=== PATIENT | female | born 1970 | race Caucasian/White ===

== ENCOUNTER → 2016-08-22 | Day surgery (SDC) | payer BC ==
[~2016-08-22] VITALS: Ht 154.9 cm; Wt 60.0 kg
[~2016-08-22] MED LIST: *HYDROmorphone PF 1 MG VIAL PERIprocedural Use ONLY ONE; *ONDANSETRON 4 MG VIAL PERIprocedural Use ONLY ONE; *PROMETHAZINE 25 MG/ML VIAL PERIprocedural use ONLY ONE; *morphine SULFATE 8 MG/ML PERIprocedure ONLY ONE; ACETAMINOPHEN 1000 MG/100 ML VIAL IV SCH; ADVI200C5 PO; BUPIVACAINE/EPINEPHRINE 0.25% 50 ML VIAL ONE; CHLORHEXIDINE GLUCONATE 2 % 1 PACK (2 CLOTHS) TOPICAL PRN; DEXAMETHASONE SOD PHOS 4 MG/ML VIAL ONE; DO NOT ADM ANY ANTICOAGULANT DRUGS PRN; FAMOTIDINE 20 MG/2 ML VIAL ONE; FEXO15TA PO; FEXO1TAB97 PO; FLUT1SPR5 EACH NARE; INSULIN HUMAN REGULAR 1,000 UNITS/10 ML VIAL SQ PRN; MAPA500C PO; METOPROLOL TARTRATE 25 MG TAB PO PRN; MIDAZOLAM HCL 2 MG/2 ML VIAL ONE; MORPHINE SULFATE 4 MG/ML INJ IV PRN; MORPHINE SULFATE 4 MG/ML INJ ONE; MULT1TAB84 PO; NEOSTIGMINE 3 MG/3 ML SYR IV ONE; OMEP40CA2 PO; ONDANSETRON HCL 4 MG/2 ML VIAL IV PUSH PRN; ONDANSETRON HCL 4 MG/2 ML VIAL ONE; POVIDONE IODINE 5% (ANTISEPSIS KIT) 4 APPLICATIONS EACH NARE PRN; PROPOFOL 200 MG/20 ML AMP IV ONE; SODIUM CHLORID 0.9% 500 ML IV PRN; ceFAZolin 2 GM PREMIX 50 ML IV SCH; diphenhydrAMINE HCL 50 MG/ML VIAL ONE; fentaNYL CITRATE 250 MCG/5 ML AMP ONE; oxyCODONE/ACETAMINOPHEN 5 MG/325 MG TAB PO PRN
[2016-08-22] MEDS: LACTATED RINGER'S 1000 ML IV PRN ×2 (06:18→09:56)
[2016-08-22 06:19] VITALS: BP 112/73; PULSE 60; RESP 16; TEMP 98.3; O2SAT 98
--- NOTE | 2016-08-22 09:21 | PD.OP ---
cc: Patrice Casey MD Operative Report Date of Surgery: August 22, 2016 Preoperative Diagnosis: (1) Incisional hernia Postoperative Diagnosis: (1) Incisional hernia Procedure: Laparoscopic repair of incisional hernia at the umbilicus with a 10 x 15 x 1 [place] "DualMesh Anesthesia: GETA Surgeon: Patrice Casey Screen Tacker(s): Gem MATTSON Operation and Findings: EBL: 10 cc Operative findings: The patient had a 2 x 2 centimeter incisional hernia at and just to the right of the umbilicus with incarcerated preperitoneal fat. Procedure in detail: The patient was taken to the operating room and placed supine position. Gen. endotracheal anesthesia was induced. The abdomen was prepped and draped in usual sterile fashion and a surgical timeout was performed to verify correct patient procedure and site. Appropriate perioperative antibiotics were administered. In the left lower abdomen 5 mm incision was made after infiltration with local anesthetic and a 5 mm port placed using the direct Optiview technique. The abdomen was insufflated to 15 mmHg which the patient tolerated well. The 12 mm gel balloon port was placed in the left upper abdomen. At the umbilicus and just to the right of the umbilicus there was an incisional hernia defect about 2 x 2 centimeters. Incarcerated preperitoneal fat was reduced and surrounding fatty tissue was removed. The fatty tissue towards the falciform was also cleared away. Two five mm balloon ports were placed in the right abdomen laterally. I chose to repair the defect using 10 x 15 cm x 1 mm [place] DualMesh. The [place] suture was placed in 4 positions at each border. The mesh was rolled and placed in the abdominal cavity. The rough side was towards the abdominal wall and the smooth side towards the bowel. Using the [place] suture passer each suture was brought up through the abdominal wall through separate stab incisions in the 4 locations. The 15 cm longer length of the mesh was placed vertically and the 10 cm transversely. There was very good coverage of the defect and a hillary-shaped was created. The pro-tack tacker was used to secure the edges of the mesh. There was good hemostasis. At this point trochars were removed and the abdomen allowed to desufflate. The 12 mm port site fascia was closed with [id number] 0 Vicryl suture. Skin closed with 4 -0 Monocryl subcuticular for the ports as well as Dermabond for the ports and this small stab incisions. The patient tolerated the procedure well was extubated and taken back in stable condition. Patrice Casey MD August 22, 2016 09:21
[2016-08-22 11:48] VITALS: PULSE 94; RESP 16; TEMP 98.3; O2SAT 96
[2016-08-22 12:05] VITALS: BP 134/84
== END | disposition home or self-care (01) ==
LOC: HSDC 05:42
PROVIDERS: ATTEND Surgery
DX: K43.0 Incisional hernia with obstruction, without gangrene (principal); E11.9 Type 2 diabetes mellitus without complications; K21.9 Gastro-esophageal reflux disease without esophagitis; K58.9 Irritable bowel syndrome, unspecified; N80.9 Endometriosis, unspecified; H53.8 Other visual disturbances
CPT/HCPCS: 00752; 49655; C1781; J0131; J0690; J1100; J1170; J1200; J2250; J2270; J2405; J2550; J2710; J3010; J7120

== ENCOUNTER → 2017-03-07 | Outpatient (CLI) | payer BC ==
[~2017-03-07] MED LIST changes: -*HYDROmorphone PF 1 MG VIAL PERIprocedural Use ONLY ONE; -*ONDANSETRON 4 MG VIAL PERIprocedural Use ONLY ONE; -*PROMETHAZINE 25 MG/ML VIAL PERIprocedural use ONLY ONE; -*morphine SULFATE 8 MG/ML PERIprocedure ONLY ONE; -ACETAMINOPHEN 1000 MG/100 ML VIAL IV SCH; -ADVI200C5 PO; -BUPIVACAINE/EPINEPHRINE 0.25% 50 ML VIAL ONE; +CELE100C PO; +CELE50CA PO; +CETI10CA3 PO; -CHLORHEXIDINE GLUCONATE 2 % 1 PACK (2 CLOTHS) TOPICAL PRN; -DEXAMETHASONE SOD PHOS 4 MG/ML VIAL ONE; -DO NOT ADM ANY ANTICOAGULANT DRUGS PRN; -FAMOTIDINE 20 MG/2 ML VIAL ONE; +FERRTAB6 PO; -FEXO1TAB97 PO; -INSULIN HUMAN REGULAR 1,000 UNITS/10 ML VIAL SQ PRN; -METOPROLOL TARTRATE 25 MG TAB PO PRN; -MIDAZOLAM HCL 2 MG/2 ML VIAL ONE; -MORPHINE SULFATE 4 MG/ML INJ IV PRN; -MORPHINE SULFATE 4 MG/ML INJ ONE; -MULT1TAB84 PO; -NEOSTIGMINE 3 MG/3 ML SYR IV ONE; -ONDANSETRON HCL 4 MG/2 ML VIAL IV PUSH PRN; -ONDANSETRON HCL 4 MG/2 ML VIAL ONE; +ORTH0.25 PO; -POVIDONE IODINE 5% (ANTISEPSIS KIT) 4 APPLICATIONS EACH NARE PRN; -PROPOFOL 200 MG/20 ML AMP IV ONE; -SODIUM CHLORID 0.9% 500 ML IV PRN; +SONA5CAP7 PO; +WOMETAB5 PO; -ceFAZolin 2 GM PREMIX 50 ML IV SCH; -diphenhydrAMINE HCL 50 MG/ML VIAL ONE; -fentaNYL CITRATE 250 MCG/5 ML AMP ONE; -oxyCODONE/ACETAMINOPHEN 5 MG/325 MG TAB PO PRN
== END ==
LOC: CPRE 11:47
PROVIDERS: ATTEND Obstetrics & Gynecology
DX: N92.0 Excessive and frequent menstruation with regular cycle (principal)

== ENCOUNTER 2017-03-12 07:52 | Observation (INO) | payer BC ==
[~2017-03-12] VITALS: Ht 154.9 cm; Wt 60.9 kg
[~2017-03-12 07:52] MED LIST changes: -CELE50CA PO; -MAPA500C PO
[2017-03-12] MEDS ORDERED: MIDAZOLAM HCL 2 MG/2 ML VIAL IV ONE ×2 (08:30→12:00)
[2017-03-12] MEDS ORDERED: ONDANSETRON HCL 4 MG/2 ML VIAL IV PUSH ONE (08:30)
[2017-03-12] MEDS ORDERED: METOPROLOL TARTRATE 25 MG TAB PO PRN (08:30)
[2017-03-12] MEDS ORDERED: ceFAZolin 1,000 MG/NS 100 ML IV SCH ×2 (08:30)
[2017-03-12] MEDS ORDERED: POVIDONE IODINE 5% (ANTISEPSIS KIT) 4 APPLICATIONS EACH NARE PRN (08:30)
[2017-03-12] MEDS ORDERED: LACTATED RINGER'S 1000 ML IV PRN (08:30)
[2017-03-12] MEDS ORDERED: SODIUM CHLORID 0.9% 500 ML IV PRN (08:30)
[2017-03-12] MEDS ORDERED: CHLORHEXIDINE GLUCONATE 2 % 1 PACK (2 CLOTHS) TOPICAL PRN (08:30)
[2017-03-12] MEDS ORDERED: ESTROGENS CONJUGATED VAG CREA 15 APPL/30 GM TUBE ONE (09:57)
[2017-03-12] MEDS ORDERED: SUGAMMADEX SODIUM 200 MG/2 ML VIAL IV PUSH ONE ×2 (11:54)
[2017-03-12 11:57] LABS: HEMATOCRIT 32.1 % (35.0-46.0); REVIEW FLAG FINAL
[2017-03-12] MEDS ORDERED: KETOROLAC TROMETHAMINE 30 MG/ML (IVP) VIAL IV PUSH ONE ×3 (12:00→17:15)
[2017-03-12] MEDS ORDERED: LIDOCAINE HCL 1% PF 5 ML SYRINGE OTHER ONE (12:00)
[2017-03-12] MEDS ORDERED: ONDANSETRON HCL 4 MG/2 ML VIAL IV ONE (12:00)
[2017-03-12] MEDS ORDERED: PROPOFOL 200 MG/20 ML AMP IV ONE (12:00)
[2017-03-12] MEDS ORDERED: ROCURONIUM INJ 50 MG/5 ML SYRINGE IV PUSH ONE (12:00)
[2017-03-12] MEDS ORDERED: ACETAMINOPHEN 1000 MG/100 ML 100 ML IV ONE (12:21)
[2017-03-12] MEDS ORDERED: *morphine SULFATE 8 MG/ML PERIprocedure ONLY ONE (12:21)
[2017-03-12] MEDS ORDERED: *HYDROmorphone PF 1 MG VIAL PERIprocedural Use ONLY ONE (12:30)
[2017-03-12] MEDS ORDERED: *MEPERIDINE 25 MG INJ VIAL PERIprocedural Use ONLY ONE (12:36)
[2017-03-12] MEDS ORDERED: MORPHINE SULFATE 30 MG/30 ML PCA ONE (12:42)
[2017-03-12] MEDS ORDERED: NALOXONE HCL 0.4 MG/ML AMP IV PUSH PRN (13:00)
[2017-03-12] MEDS ORDERED: oxyCODONE/ACETAMINOPHEN 5 MG/325 MG TAB PO PRN (13:00)
[2017-03-12] MEDS: DEXT 5%-NACL 0.45% 1000 ML INJ 1,000 ML IV SCH ×2 (13:00→19:29)
[2017-03-12] MEDS ORDERED: DO NOT ADM ANY ANTICOAGULANT DRUGS PRN (13:00)
[2017-03-12] MEDS ORDERED: ONDANSETRON HCL 4 MG/2 ML VIAL IV PUSH PRN (13:00)
[2017-03-12] MEDS ORDERED: diphenhydrAMINE HCL 50 MG/ML VIAL IV PUSH PRN (13:00)
[2017-03-12] MEDS ORDERED: *PROMETHAZINE 25 MG/ML VIAL PERIprocedural use ONLY ONE (13:15)
[2017-03-12 13:30] VITALS: BP 152/91; PULSE 83; RESP 16; TEMP 98; O2SAT 97
[2017-03-12] MEDS: MORPHINE SULFATE 30 MG/30 ML PCA IV SCH ×2 (13:37→19:35)
[2017-03-12] MEDS ORDERED: ZOLPIDEM TARTRATE 5 MG TAB PO PRN (15:45)
[2017-03-12 16:30] VITALS: BP 154/89; PULSE 85; RESP 20; TEMP 99; O2SAT 99
[2017-03-12 16:46] LABS: HEMATOCRIT 33.9 % (35.0-46.0); REVIEW FLAG FINAL
[2017-03-12] MEDS: ALPRAZolam 0.5 MG TAB PO PRN ×2 (17:25→23:27)
[2017-03-12] MEDS: PCA - TOTAL MG MORPHINE DELIVERED PER SHIFT SCH ×2 (18:00→20:27)
[2017-03-12 20:00] VITALS: BP 130/72; PULSE 86; RESP 18; TEMP 99; O2SAT 99
[2017-03-12] MEDS: CELECOXIB 100 MG CAP PO SCH (20:27)
[2017-03-12] MEDS: FLUTICASONE PROPIONATE 50 MCG/ACT 16 GM NASAL SPRAY NASAL SCH (20:27)
[2017-03-12] MEDS ORDERED: CETIRIZINE HCL 10 MG TAB PO SCH (21:00)
[2017-03-12] MEDS: KETOROLAC TROMETHAMINE 10 MG TAB PO PRN (23:28)
[2017-03-13] VITALS: BP 126/75; PULSE 74; RESP 16; TEMP 99.1; O2SAT 98
[2017-03-13 04:00] VITALS: BP 137/68; PULSE 96; RESP 18; TEMP 99.8; O2SAT 98
[2017-03-13] MEDS: MORPHINE SULFATE 30 MG/30 ML PCA IV SCH (04:07)
[2017-03-13] MEDS: DEXT 5%-NACL 0.45% 1000 ML INJ 1,000 ML IV SCH (04:07)
[2017-03-13] MEDS: PCA - TOTAL MG MORPHINE DELIVERED PER SHIFT SCH (04:08)
[2017-03-13 06:01] LABS: HEMATOCRIT 27.2 % (35.0-46.0); REVIEW FLAG FINAL
[2017-03-13 07:39] VITALS: BP 126/72; PULSE 90; RESP 18; TEMP 100.1; O2SAT 97
--- NOTE | 2017-03-13 08:14 | MP ---
cc: BRENDA TELLO DATE OF SURGERY 03/12/2017 PREOPERATIVE DIAGNOSES Leiomyomata uteri, menorrhagia. Stress urinary incontinence. POSTOPERATIVE DIAGNOSES Leiomyomata uteri, menorrhagia. Stress urinary incontinence. PROCEDURE 1. Vaginal hysterectomy. 2. Transverse obturator tape urethral suspension. 3. Cystoscopy. SURGEON MD Katie ANESTHESIA General. ESTIMATED BLOOD LOSS 900 cc. COMPLICATIONS None. FINDINGS The patient had a uterus that was approximately 9 weeks' size with too numerous to count intramural and subserosal fibroids. These all appeared benign. Most of them were in the 1-2 cm size. The fallopian tubes were status post tubal ligation. The ovaries were small and unremarkable and normal appearance except for some adhesions to the distal tubes. The urethra and bladder showed no signs of trauma on cystoscopy and were otherwise unremarkable. DESCRIPTION OF PROCEDURE The patient was brought into the operating room and following general anesthesia was placed in dorsal lithotomy position. Her vagina, abdomen and perineum were prepped and draped. A circumferential incision was made at the junction of the cervix and the vagina and the posterior cul-de-sac was entered easily with Gregory scissors. A retractor was placed into the posterior cul-de-sac. We then sharply dissected the pubovesical cervical fascia until the bladder peritoneum was identified and this was incised. A retractor was placed into the anterior cul-de-sac lifting the bladder and ureters out of the field of dissection. The uterosacral ligaments then clamped, cut and tied off with 0 Vicryl stitch. The cardinal ligaments were clamped, cut and tied off with 0 Vicryl stitch. The uterine vessels were then clamped, cut and tied off with 0 Vicryl stitch. We attempted to deliver the uterus to the posterior cul-de-sac but because of its bulk we were unable to. We made one additional clamping of the tissue just above the uterine vessel pedicles on each side. These were sealed off with 0 Vicryl stitch. We again attempted delivery of the uterus through the posterior cul-de-sac but was still unable to. In attempting to do this, unfortunately initiated some bleeding from both cardinal ligament and pedicles. These were reclamped with Marci clamps. I then decided to core out the center of the uterus to diminish its size to allow delivery of the uterus. We took a sharp knife and cored out the center of the uterus and this successfully allowed us to deliver the uterus through the posterior cul-de-sac. The upper broad ligament and pedicles were then clamped, cut and tied off doubly with 0 Vicryl stitch on each side. With the uterus removed I could easily see where the bleeding was coming from, near the cardinal ligament pedicles. These were sealed off on both sides with interrupted [id number] 0 Vicryl stitch. The bleeding from these pedicles is what accounted for the majority of the excessive blood loss above the usual 100-200 cc of blood. At that point good hemostasis was noted within the pelvis. The left and right vaginal cuff angle sutures were placed with 0 Vicryl stitch incorporating the uterosacral ligament for vaginal wall support. The ovaries and the distal tubes were inspected with the findings as noted above. The adhesions from the tubes to the ovaries and excessive prior blood loss made it untenable to remove the small portion of distal tubes still present. Attention was next directed at the transverse obturator tape urethral suspension. A midline anterior vaginal mucosal incision was made beneath the bladder and the urethra. We dissected laterally near the obturator foramen and the Solyx system transverse tape was loaded and placed easily on each side. A cystoscopy was then performed which revealed a normal urethra and bladder without any signs of trauma. Clear urine was present within the bladder. The bladder was then drained and the anterior vaginal mucosa was reapproximated with a running locking #2-0 Vicryl stitch. The remaining vaginal cuff was closed transversely with a running locking 0 Vicryl stitch. The vagina was irrigated and good hemostasis present. Solitario catheter was placed and clear urine was obtained. The patient was then taken to the recovery room in good condition with all counts correct and clear urine draining in the Solitario catheter. MD ETHAN Barboza/VALORIE /6:40 PM /8:00 AM
[2017-03-13] MEDS: ALPRAZolam 0.5 MG TAB PO PRN (08:20)
[2017-03-13] MEDS: KETOROLAC TROMETHAMINE 10 MG TAB PO PRN (08:21)
[2017-03-13] MEDS: FLUTICASONE PROPIONATE 50 MCG/ACT 16 GM NASAL SPRAY NASAL SCH (08:22)
[2017-03-13] MEDS: CELECOXIB 100 MG CAP PO SCH (08:22)
[2017-03-13] MEDS ORDERED: LORATADINE 10 MG TAB PO SCH (09:00)
[2017-03-13] MEDS ORDERED: PANTOPRAZOLE SOD 40 MG DELAYED RELEASE TAB PO SCH (09:00)
== END 2017-03-13 11:21 | disposition home or self-care (01) ==
LOC: HSDC 07:52 → H1EA 12:10
PROVIDERS: ADMIT Obstetrics & Gynecology; ATTEND Obstetrics & Gynecology
DX: N92.0 Excessive and frequent menstruation with regular cycle (principal); D25.2 Subserosal leiomyoma of uterus; D25.1 Intramural leiomyoma of uterus; N39.3 Stress incontinence (female) (male); N72 Inflammatory disease of cervix uteri; N84.0 Polyp of corpus uteri; N80.0 Endometriosis of uterus; K21.9 Gastro-esophageal reflux disease without esophagitis; K58.9 Irritable bowel syndrome, unspecified; F41.9 Anxiety disorder, unspecified; Z87.891 Personal history of nicotine dependence
CPT/HCPCS: 00860; 00944; 57288; 58260; 85014; 85018; 86850; 86900; 86901; 88307; 96374; 96375; 96376; C1771; G0378; J0131; J0690; J1170; J1885; J2175; J2250; J2270; J2405; J2550; J3010; J7120